=== PATIENT | male | born 1990 | race Caucasian/White ===

== ENCOUNTER 2018-08-06 01:04 | Emergency (ER) | payer BC ==
[~2018-08-06] VITALS: Ht 180.3 cm; Wt 97.7 kg
[~2018-08-06 01:04] MED LIST: DOXYCYCLINE 10100 MG PO; MUCINEX DM 30 M1 TE1 PO; NO HOME MEDICATIONS; PHENERGAN 25 TA25 MG PO; ZOFRAN 8MG8 MG PO
[2018-08-06 01:09] VITALS: TEMP 98.7
[2018-08-06 01:40] LABS: HEMATOCRIT 45.5 % (42.0-52.0); HEMOGLOBIN 15.1 g/dl (13.5-18.0); MEAN CELL VOLUME 94 fl (80.0-100.0); MEAN CORPUSCULAR HEMOGLOBIN 31 pg (27.0-31.0); MEAN CORPUSCULAR HGB CONC 33 g/dl (33.0-37.0); PLATELET COUNT 189 K/mm3 (130-400); RED BLOOD COUNT 4.83 M/mm3 (4.20-5.60)
[2018-08-06] MEDS ORDERED: CARAFATE 1GM1 G PO (01:43)
[2018-08-06] MEDS ORDERED: PRIL40 PO (01:43)
[2018-08-06 02:05] LABS: ALBUMIN 4.1 gm/dL (3.5-5.0); BILIRUBIN,TOTAL 0.4 mg/dL (0.0-1.0); C-REACTIVE PROTEIN 3.1 mg/dL (0.0-0.9); CALCIUM 8.9 mg/dL (8.4-10.2); CREATININE, serum 1.05 mg/dL (0.66-1.25); POTASSIUM 3.5 mmol/L (3.4-5.0); TOTAL PROTEIN 7.3 gm/dL (6.4-8.2)
[2018-08-06] MEDS ORDERED: CIPRO 500MG TA500 MG PO (02:45)
[2018-08-06] MEDS ORDERED: BENTYL 20MG20 MG/TAB PO (02:45)
[2018-08-06 02:57] VITALS: BP 125/79; PULSE 80
== END 2018-08-06 02:58 | disposition home or self-care (01) ==
LOC: COL.ER 01:04
PROVIDERS: Emergency Medicine
DX: R19.7 Diarrhea, unspecified (principal); R10.84 Generalized abdominal pain; F17.210 Nicotine dependence, cigarettes, uncomplicated; K58.9 Irritable bowel syndrome, unspecified